=== PATIENT | male | born 1960 | race Caucasian/White ===

== ENCOUNTER 2022-06-18 23:46 | Inpatient (IN) | payer OTHER, SELFPAY ==
[2022-06-18 23:27] VITALS: BMI 33.9
[2022-06-18 23:30] VITALS: BP 144/80; PULSE 88; RESP 19; TEMP 36.4; O2SAT 100
--- NOTE | 2022-06-18 23:35 | HP.PCM.HOS_ITS ---
HPI - General General Date of Admission: 06/18/22 Date of Service: 06/18/22 Chief Complaint: DKA HPI Narrative IRMA LOZANO, is a 61 M with a PMH as outlined who presents as a transfer from outside hospital with a complaint of fatigue, malaise, body aches and chills as well as headache and sore throat ~ 3 days prior ot admission> he had associated nausea and decreased appetite adi he held his home insulin dose. His symptoms didnt improve so he went to outside hospital ED. He was found to be drowsy in [facility] outside hospital ED. He was found to have markedly elevated blood sugars, with glucose in the 600s, and ABG showed ph of 7, with bicarb of 22 and chemistry showed sodium of 129, potassiium of 5.7, bicarb of 8.4 and glucose of 666; Cr was 2.13 with baseline of 0.7 and anion gap was 37. There were moderate blood ketones, and CBC showed wbc of 5.5 and hb of 17.2. Lactic acid was 3. COVID test done was also positive; patient is unvaccinated against covid. He was started on insulin drip, and transferred to [facility] ICU. Patient seen and examined on admission. He was seen in ICU. He had no active complaints and review of systems was otherwise negative. [facility] Medical History (Updated 06/18/22 @ 23:[address] 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 Obesity (BMI 30.0-34.9) Pulmonary nodules Pulmonary scarring Home Medications insulin aspart U-100 100 unit/mL (3 mL) subcutaneous pen (Novolog Flexpen U-100 Insulin aspart) 0 units subcut ACHS 05/03/17 [History Last Taken Unknown] insulin NPH isoph U-100 human 100 unit/mL subcutaneous suspension (Humulin N NPH U-100 Insulin (isophane susp)) 40 unit (0.4 mL) SQ DAILY ##0 05/06/17 [Rx Last Taken Unknown] insulin NPH isoph U-100 human 100 unit/mL subcutaneous suspension (Humulin N NPH U-100 Insulin (isophane susp)) 40 unit (0.4 mL) SQ QHS ##0 05/06/17 [Rx Last Taken Unknown] silver 1.2 %-foam bandage 8 X 8 (Aquacel AG Foam) ##7 05/06/17 [Rx Last Taken Unknown] Allergy/AdvReac Type Severity Reaction Status Date / Time Penicillins [PCN] Allergy Rash Verified 05/03/17 11:06 Family History (Updated 06/18/22 @ 18:[address] Dona Baer MD) Mother Heart disease Father Heart disease Surgical History (Updated 06/18/22 @ 18:[address] Dona Baer MD) History of pancreatic surgery S/P cholecystectomy Social History (Updated 06/18/22 @ 18:[address] Dona Baer MD) household members: none Smoking Status: Never smoker alcohol intake: current alcohol intake frequency: holidays/special occasions only substance use type: does not use ROS Constitutional Constitutional: Reports anorexia, chills, fatigue, fever(s), malaise and weakness Eyes Eyes: Denies change in vision ENT HEENT: Denies dysphagia, headache(s), nasal congestion or sore throat Cardiovascular Cardiovascular: Denies chest pain, dyspnea on exertion, edema, lightheadedness, orthopnea, palpitations, paroxysmal nocturnal dyspnea, rapid heart rate or sync ope Respiratory/Chest Respiratory/Chest: Denies cough, dyspnea, shortness of breath at rest or shortness of breath with exertion Gastrointestinal Gastrointestinal: Denies abdominal pain, diarrhea, nausea or vomiting Genitourinary Genitourinary: Denies dysuria Musculoskeletal Musculoskeletal: Denies arthralgias Neurologic Neurologic: Denies confusion, disequilibrium, dizziness, focal weakness, headache(s), numbness, seizure-like activity or syncope Psychiatric Psychiatric: Denies anxiety or depression Endocrine Endocrinology: Denies change in body appearance Hematologic/Lymphatic Hematologic/Lymphatic: Denies anemia Vital Signs Vital Signs Vital Signs: Weight Weight: 257 lb 0.944 oz Body Mass Index (BMI) 33.9 Physical Exam Const alert, oriented x3 and no apparent distress General Appearance: cooperative HEENT normocephalic, head/scalp atraumatic, hearing grossly normal bilaterally and moist oral mucous membranes Mouth: oral and palatal mucosa normal Eyes PERRL and EOMs intact bilaterally Neck no lymphadenopathy and supple Resp normal respiratory effort, no retractions, no use of accessory muscles and clear to auscultation bilaterally Cardio regular rate, regular rhythm, S1 normal heart sound, S2 normal heart sound and no murmurs GI normal to inspection, nondistended, normoactive bowel sounds, soft to palpation, non-tender and non-distended Extremity normal to inspection, full ROM and no clubbing, cyanosis or edema Neuro oriented x3, CN's II-XII intact bilaterally, moves all extremities and no focal motor deficits Sensorium / Orientation: awake and alert Motor Exam: strength 5/5 throughout Psych affect normal Results Lab / Micro Data Result Diagrams: 06/19/22 06:05 06/19/22 06:05 Assessment & Plan Assessment/Plan (1) DKA (diabetic ketoacidoses): (2) COVID: PLAN: Plan #DKA * admit to ICU * check CBC and BMP * continue insulin drip, and hydrate with IVF * transition to D5 NS once sugar falls to <250 and switch to home dose of insulin * check A1C * * #ANion gap metabolic acidosis due to DKA * anion gap was 37 at outside hospital * check BMP to assess anion gap and bicarb levels * should resolve once DKA resolves * * #COVID 19 infection * asymptomatic. On room air * hold off on steroids as he is asymptomatic and on room air, and steroids will worsen hyperglycemia and DKA * #Pulmonary nodules: chronic. follow up with pulmonology on outpatient basis. Necrosis of pancreas: as above DVT prophylaxis: lovenox Code status: DNRCCA no intubation * Patient counseled extensively about different types of CODE STATUS including full code, DNR CCA and DNR CCA. Patient elects to be DNRCCA no intubation. * Total [id number]-[id number] time 17 minutes. Charges/Coding Visit Charges Inpatient E&M: 91738 Init Hosp L3 Procedures Hospitalists Procedures: 90558 Advncd Care Plan 30 Min
[2022-06-18 23:45] VITALS: BP 129/74; PULSE 90; RESP 15; O2SAT 99
[2022-06-19] VITALS (20 sets, daily range): BP systolic 117–172; BP diastolic 45–88; PULSE 64–90; RESP 11–20; TEMP 36.4–36.8; O2SAT 96–100
[2022-06-19] MEDS: 0.9% Saline Lock 10 ML Syringe IV ×3 (01:25→04:16)
--- NOTE | 2022-06-19 01:30 | NURSING ---
Dr. Wong at bedside to admit pt upon arrival. Received pt from [facility] with insulin gtt infusing at 4 un/hr. New orders placed by Dr. Wong to start new insulin gtt @ 11.7 un/hr. Per Dr. Wong, hold off on IV fluid boluses until updated labs come back. This RN unable to obtain bloodwork, lab currently in room attempting to draw.
[2022-06-19] MEDS: TITRATION PARAMETER CHANGE 1 EACH IV (02:05)
[2022-06-19 02:16] LABS: Absolute Lymphocyte Count 0.35 X10^3/uL (0.83-4.51); Absolute Neutrophil Count 3.9 X10^3/uL (2.0-7.7); Basophil# 0.01 X10^3/uL; Basophil% 0.2 % (0-1); Hematocrit 41.4 % (40-54); Hemoglobin 13.9 g/dL (13.0-16.5); Lymphocyte # 0.35 X10^3/ul (0.83-4.51); Lymphocyte % 7.4 % (19-41); Mean Corp Hgb Conc 33.6 g/dL (32-36); Mean Corpuscular Hgb 26.9 pg (27.0-32.0); Mean Corpuscular Volume 80.1 fL (80-94); Mean Platelet Vol. 9.8 fl (6.2-12.0); Monocyte# 0.47 X10^3/uL; Monocyte% 9.9 % (0-10); NRBC Flagged by Analyzer 0 % (0-5); Neutrophil % 82.3 % (47-70); POSITIVE DIFFERENTIAL YES; Platelet Count 139 K/mm3 (150-450); RBC Distribution Width CV 13.5 % (11.6-14.6); RBC Distribution Width SD 39.1 fl (35.1-43.9); Red Blood Count 5.17 M/mm3 (4.6-6.2); White Blood Count 4.7 K/mm3 (4.4-11.0)
[2022-06-19 02:30] LABS: Bedside Glucose 237 mg/dL (74-106)
[2022-06-19 02:30] LABS: Bedside Glucose 249 mg/dL (74-106)
[2022-06-19 02:30] LABS: Bedside Glucose 231 mg/dL (74-106)
[2022-06-19 02:33] LABS: ALB/GLOB Ratio 0.8 RATIO (0.9-2.4); AST(SGOT) 12 U/L (15-37); Alanine Aminotransfer ALT/SGPT 27 U/L (16-61); Albumin, Serum 2.6 g/dL (3.2-5.0); Alkaline Phosphatase 206 U/L (45-117); Anion Gap 11 (5-15); BUN 25 mg/dL (7-18); BUN/Creat Ratio 18.4 RATIO (10-20); Calcium,Total 7.4 mg/dL (8.5-10.1); Chloride 113 mmol/L (98-107); Creatinine, Serum 1.36 mg/dL (0.70-1.30); EST Glomerular Filtration Rate 57 mL/min (>60); Est Glom Filt Rate - Afr Amer 68 mL/min (>60); Estimated Creatinine Clearance 64.46 ml/min; Globulin 3.3 g/dL (2.2-4.2); Glucose 218 mg/dL (74-106); Magnesium 1.8 mg/dL (1.6-2.6); Potassium 4.3 mmol/L (3.5-5.1); Protein, Total 5.9 g/dL (6.4-8.2); Sodium Level 142 mmol/L (136-145)
[2022-06-19 02:42] LABS: Differential Indicated SCAN CRITERIA MET
[2022-06-19] MEDS: Dext 5%-0.45% NS 1,000 ML 100 ML IV (03:10)
[2022-06-19] MEDS: Ondansetron 4 MG/2 ML Vial IV (04:16)
[2022-06-19 06:17] LABS: Absolute Lymphocyte Count 0.31 X10^3/uL (0.83-4.51); Absolute Neutrophil Count 3.3 X10^3/uL (2.0-7.7); Eosinophil# 0.01 X10^3/uL; Eosinophils% 0.2 % (0-5); Hematocrit 40.4 % (40-54); Lymphocyte # 0.31 X10^3/ul (0.83-4.51); Lymphocyte % 7.6 % (19-41); Mean Corp Hgb Conc 34.7 g/dL (32-36); Mean Corpuscular Hgb 27.4 pg (27.0-32.0); Mean Corpuscular Volume 79.1 fL (80-94); Mean Platelet Vol. 9.4 fl (6.2-12.0); Monocyte% 9.8 % (0-10); NRBC Flagged by Analyzer 0 % (0-5); Neutrophil # 3.34 X10^3/uL (2.7-7.7); Neutrophil % 81.9 % (47-70); POSITIVE DIFFERENTIAL YES; Platelet Count 121 K/mm3 (150-450); RBC Distribution Width CV 13.6 % (11.6-14.6); RBC Distribution Width SD 38.8 fl (35.1-43.9); Red Blood Count 5.11 M/mm3 (4.6-6.2); White Blood Count 4.1 K/mm3 (4.4-11.0)
[2022-06-19 06:21] LABS: Differential Indicated SCAN CRITERIA MET
[2022-06-19 06:29] LABS: Anion Gap 10 (5-15); BUN 24 mg/dL (7-18); BUN/Creat Ratio 18.2 RATIO (10-20); Calcium,Total 7.6 mg/dL (8.5-10.1); Chloride 112 mmol/L (98-107); Creatinine, Serum 1.32 mg/dL (0.70-1.30); EST Glomerular Filtration Rate 58 mL/min (>60); Est Glom Filt Rate - Afr Amer 71 mL/min (>60); Estimated Creatinine Clearance 66.42 ml/min; Glucose 201 mg/dL (74-106); Potassium 4.3 mmol/L (3.5-5.1); Sodium Level 143 mmol/L (136-145)
[2022-06-19 06:35] LABS: Bedside Glucose 202 mg/dL (74-106)
[2022-06-19 06:35] LABS: Bedside Glucose 216 mg/dL (74-106)
[2022-06-19 06:35] LABS: Bedside Glucose 201 mg/dL (74-106)
[2022-06-19 06:35] LABS: Bedside Glucose 184 mg/dL (74-106)
--- NOTE | 2022-06-19 06:49 | CON.PCM.CC_ITS ---
Assessment & Plan Assessment/Plan (1) DKA (diabetic ketoacidoses): (2) COVID: PLAN: Plan RECOMMENDATIONS: 1. Okay to transition from insulin infusion to basal and sliding scale cove rage. 2. Advance diet as tolerated. 3. Diabetic education. 4. Encourage incentive spirometer use while in bed and mobilize patient as tolerated. 5. The patient is medically stable for transfer out of the intensive care unit. 6. Will sign off from a critical care perspective. Please call with any additional questions. IMPRESSIONS: 1. Diabetic ketoacidosis The patient presented to the hospital with DKA in the setting of COVID-19, which was managed with IV fluids and a continuous insulin infusion. The patient's presenting DKA is now resolved. Okay from my perspective to advance diet and resume basal and sliding scale insulin. 2. COVID-19 infection Patient has no respiratory symptoms of note and is maintaining appropriate oxygen saturations on room air. Therefore, no additional intervention is required at this time. 3. Acute kidney injury Likely prerenal in etiology in the setting of DKA. Creatinine has improved with volume resuscitation. Continue to monitor urine output. No indication for renal replacement therapy. This note was generated with [employer] dictation software. It may contain incorrect words, spelling, and punctuation that were not noted in checking the note before signing. HPI Consult Data Date of Consult: 06/19/22 HPI Narrative Reason for Consultation: DKA, COVID HPI Narrative: The patient is a 61-year-old male, with a history as outlined below, who presented as a transfer of care from [facility] with DKA after presenting with generalized malaise, fatigue and chills. In addition, the patient tested positive for COVID. He has an unvaccinated status at his baseline. The patient was apparently noncompliant with his prescribed insulin regimen for several days leading up to his hospitalization, as he did not feel well. At the outside hospital, the patient was noted to have a serum bicarbonate of 8.4 with a glucose of 600, creatinine of 2.13 and elevated anion gap, along with moderate serum ketones. He was initiated on fluids and a continuous insulin infusion and subsequently transferred to our ICU for admission. The patient has remained afebrile and hemodynamically stable overnight. He is maintaining appropriate oxygen saturations on room air. The patient has been fluid resuscitated and remains on a continuous insulin infusion. Anion gap has now been closed x2. The patient is without any resting dyspnea. [facility] Medical History (Updated 06/18/22 @ 23:[address] 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 Obesity (BMI 30.0-34.9) Pulmonary nodules Pulmonary scarring Home Medications silver 1.2 %-foam bandage 8 X 8 (Aquacel AG Foam) ##7 05/06/17 [Rx Last Taken Unknown] insulin degludec 100 unit/mL (3 mL) subcutaneous pen (Tresiba FlexTouch U-100 insulin) 65 unit subcut QHS diabetes 06/19/22 [History Last Taken Unknown] insulin lispro 100 unit/mL subcutaneous solution See Protocol subcut TID diabetes 06/19/22 [History Last Taken Unknown] pantoprazole 40 mg tablet,delayed release 40 mg PO DAILY reflux 06/19/22 [History Last Taken Unknown] Allergy/AdvReac Type Severity Reaction Status Date / Time Penicillins [PCN] Allergy Rash Verified 05/03/17 11:06 Family History (Updated 06/18/22 @ 18:[address] Dona Baer MD) Mother Heart disease Father Heart disease Surgical History (Updated 06/18/22 @ 18:[address] Dona Baer MD) History of pancreatic surgery S/P cholecystectomy Social History (Updated 06/18/22 @ 18:[address] Dona Baer MD) household members: none Smoking Status: Never smoker alcohol intake: current alcohol intake frequency: holidays/special occasions only substance use type: does not use ROS ROS Narrative 10 systems were reviewed with pertinent positives as noted in the HPI above. Physical Exam Const alert, oriented x3 and no apparent distress General Appearance: cooperative Nutritional Appearance: obese HEENT normocephalic, head/scalp atraumatic and moist oral mucous membranes Eyes PERRL, EOMs intact bilaterally and conjunctivae normal Neck supple General: trachea midline Chest inspection of chest normal Resp normal respiratory effort Auscultation: Negative for rales, rhonchi or wheezes Cardio regular rate and regular rhythm GI normal to inspection, nondistended, normoactive bowel sounds Extremity no clubbing, cyanosis or edema Skin no rashes or lesions noted Neuro CN's II-XII intact bilaterally, moves all extremities and no focal motor deficits Psych cooperative and affect normal Lab / Micro Data Result Diagrams: 06/19/22 06:05 06/19/22 06:05 Labs: Laboratory Results - last 24 hr 06/18/22 23:43: POC Glucose 249 H 06/19/22 00:57: POC Glucose 237 H 06/19/22 02:04: POC Glucose 231 H 06/19/22 02:10: Sodium 142, Potassium 4.3, Chloride 113 H, Carbon Dioxide 18.0 L , Anion Gap 11, BUN 25 H, Creatinine 1.36 H, Estim Creat Clear Calc 64.46, Est GFR (MDRD) Af Amer 68, Est GFR (MDRD) Non-Af 57 L, BUN/Creatinine Ratio 18.4, Glucose 218 H, Calcium 7.4 L, Magnesium 1.8, Total Bilirubin 0.30, AST 12 L, ALT 27, Alkaline Phosphatase 206 H, Total Protein 5.9 L, Albumin 2.6 L, Globulin 3.3, Albumin/Globulin Ratio 0.8 L 06/19/22 02:10: WBC 4.7, RBC 5.17, Hgb 13.9, Hct 41.4, MCV 80.1, MCH 26.9 L, MCHC 33.6, RDW Std Deviation 39.1, RDW Coeff of Kita 13.5, Plt Count 139 L, MPV 9.8, Immature Gran % (Auto) 0.200, Neut % (Auto) 82.3 H, Lymph % (Auto) 7.4 L, Bradford % (Auto) 9.9, Eos % (Auto) 0.0, Baso % (Auto) 0.2, Absolute Neuts (auto) 3.9, Absolute Lymphs (auto) 0.35 L, Nucleated RBC % 0 06/19/22 03:05: POC Glucose 202 H 06/19/22 04:06: POC Glucose 216 H 06/19/22 05:00: POC Glucose 201 H 06/19/22 06:02: POC Glucose 184 H 06/19/22 06:05: WBC 4.1 L, RBC 5.11, Hgb 14.0, Hct 40.4, MCV 79.1 L, MCH 27.4, MCHC 34.7, RDW Std Deviation 38.8, RDW Coeff of Kita 13.6, Plt Count 121 L, MPV 9.4, Immature Gran % (Auto) 0.500, Neut % (Auto) 81.9 H, Lymph % (Auto) 7.6 L, Bradford % (Auto) 9.8, Eos % (Auto) 0.2, Baso % (Auto) 0.0, Absolute Neuts (auto) 3.3, Absolute Lymphs (auto) 0.31 L, Nucleated RBC % 0, Diff Path Review February06/19/22 06:05: Sodium 143, Potassium 4.3, Chloride 112 H, Carbon Dioxide 21.0, Anion Gap 10, BUN 24 H, Creatinine 1.32 H, Estim Creat Clear Calc 66.42, Est GFR (MDRD) Af Amer 71, Est GFR (MDRD) Non-Af 58 L, BUN/Creatinine Ratio 18.2, Glucose 201 H, Calcium 7.6 L Charges/Coding Visit Charges Inpatient E&M: 69955 Init Hosp L3
[2022-06-19 07:20] LABS: Bedside Glucose 178 mg/dL (74-106)
[2022-06-19 07:49] LABS: Hemoglobin A1c 12.1 % (3.8-5.6)
[2022-06-19] MEDS: Insulin Glargine-YFGN 100 UNIT/ML Pen 10 UNIT SC (09:08)
[2022-06-19 09:35] LABS: Bedside Glucose 200 mg/dL (74-106)
[2022-06-19] MEDS: Lisinopril 5 MG Tablet PO (10:29)
--- NOTE | 2022-06-19 11:40 | CASEMGMT ---
RN CM called patient in room for initial transition planning/care coordination assessment. RN CM introduced self and role at [facility]. Patient alert and oriented. Patient willing to participate in assessment and is able to answer all questions appropriately. Care providers, pharmacy, and demographics verified. Patient wishes to discharge home, denies need for home health at this time. Patient states he has no further needs or concerns at this time. CM to follow for discharge planning needs that may arise. PCP: Jessica Trinidad STROBOSCOPE OPERATOR, [facility] Specialists: none Preferred Pharmacy: [facility] Insurance: [employer] Prescription Benefit: yes Living Will/HPOA: Odilon painting HPOA LNOK: son, TOMA Living Arrangements: Patient lives with girlfriend in a 2 story home. Patient states he is independent and able to ambulate stairs at home. Transportation: self, GF, son DME/HHC: Patient states he has crutches, glucometer with supplies, and insulin with supplies at home. No previous HHC. Disposition Plan: Patient to discharge home with family support and follow-up plans in place. Cathy RUIZ, RN, CM
[2022-06-19] MEDS: Insulin Lispro 100 UNIT/ML INSULN.PEN SC (13:43)
[2022-06-19 14:05] LABS: Bedside Glucose 145 mg/dL (74-106)
--- NOTE | 2022-06-19 14:08 | DCINST_ITS ---
Discharge Instructions Diet Discharge Diet: Carb Control Diet Activity Discharge Activity: Return to Normal Activity Dressing / Incision Call your doctor if you observe: Fever of 101 or Higher, Shortness of breath, Dizziness, Fainting spells, Swelling in the ankles, Chest pain and Increased palpitations (irregular heartbeat) Follow Up Care Test Results: Test results from this visit will be discussed in further detail at your follow- up appointment, if applicable. Discharge Plan Admission Admit Date/Time: 06/18/22 23:46 Attending Provider: José Luis June Primary Care Provider: Jagdish Felipe Consulting Providers: Maksim Lozada ; Gurdeep Morris ; Roderick Blackman ; Teresa Valdes NP ; Flaquita Wong Discharge Orders/Prescriptions Prescriptions: New lisinopril 5 mg Tablet 5 mg PO DAILY Qty: 30 0RF Continued Tresiba FlexTouch U-100 100 unit/mL (3 mL) insulin pen 65 unit SUBCUT QHS pantoprazole 40 mg tablet,delayed release (DR/EC) 40 mg PO DAILY Label Comments: TAKE 1 TABLET BY MOUTH ONCE DAILY IN THE MORNING BEFORE BREAKFAST insulin lispro 100 unit/mL solution See Protocol subcut TID Protocol: 6. Sliding Scale Insulin Custom Condition: mg/dl range Dose/Route: Number of Units Protocol Text: Custom Sliding Scale Label Comments: INJECT SUBCUTANEOUSLY PER SLIDING SCALE THREE TIMES DAILY DIRECTED BY PHYSICIAN. MAX 60 UNITS PER DAY No Action (DME) silver-foam bandage [Aquacel AG Foam] 1 EACH bandage 1 ea TP DAILY Qty: 7 30RF Referrals / Follow Up: Jagdish Felipe MD [Primary Care Provider] - Disposition Disposition (needs filled in before D/C Order can be placed): Home, Self Care
--- NOTE | 2022-06-19 14:11 | PCM.DC.SUM ---
Providers Date of Admission: 06/18/22 Primary Care Physician: Dr. Jagdish Lozano MD Consultations 06/18/22 23:45 Consult: [facility] House Supervisor / Pulmonary Medicine Routine Consulting Provider: Pulmonary Medicine lyndsay Arora Reason for Consult: DKA, covid EMERGENT Consult: No MD Notified: Yes Date Notified: 06/18/22 Time Notified: 23:48 Method of Notification: Verbal Reason For Visit: COVID,DKA Diagnosis Discharge Diagnosis (1) DKA (diabetic ketoacidoses): Status: Acute Code(s): E13.10 - Other specified diabetes mellitus with ketoacidosis without coma (2) COVID: Status: Acute Code(s): U07.1 - COVID-19 Medications at Discharge Home Medications silver 1.2 %-foam bandage 8 X 8 (Aquacel AG Foam) ##7 05/06/17 insulin degludec 100 unit/mL (3 mL) subcutaneous pen (Tresiba FlexTouch U-100 insulin) 65 unit subcut QHS diabetes 06/19/22 insulin lispro 100 unit/mL subcutaneous solution See Protocol subcut TID diabetes 06/19/22 lisinopril 5 mg tablet 5 mg PO DAILY #30 tabs 06/19/22 pantoprazole 40 mg tablet,delayed release 40 mg PO DAILY reflux 06/19/22 Hospital Course Operations None Procedures None Summary of Care Provided Minutes Spent on Discharge: 42 Hospital Course: Per HPI: IRMA LOZANO, is a 61 M with a H as outlined who presents as a transfer from outside hospital with a complaint of fatigue, malaise, body aches and chills as well as headache and sore throat ~ 3 days prior ot admission> he had associated nausea and decreased appetite adi he held his home insulin dose. His symptoms didnt improve so he went to outside hospital ED. He was found to be drowsy in [facility] outside hospital ED. He was found to have markedly elevated blood sugars, with glucose in the 600s, and ABG showed ph of 7, with bicarb of 22 and chemistry showed sodium of 129, potassiium of 5.7, bicarb of 8.4 and glucose of 666; Cr was 2.13 with baseline of 0.7 and anion gap was 37. There were moderate blood ketones, and CBC showed wbc of 5.5 and hb of 17.2. Lactic acid was 3. COVID test done was also positive; patient is unvaccinated against covid. He was started on insulin drip, and transferred to [facility] ICU. Patient seen and examined on admission. He was seen in ICU. He had no active complaints and review of systems was otherwise negative. Hospital Course: 1. DKA with an anion gap metabolic acidosis/COVID-19?61-year-old male presents from an outside hospital with DKA. His anion gap with an insulin drip and IV fluids has closed very quickly and his sugar and vital signs are stable. Continue with his IV fluids during his last day while awaiting pickup. As to his COVID, he remains completely asymptomatic other than a sore throat and some body aches, he is not requiring any oxygen and is currently 100% on room air. I did discuss with him and his girlfriend the plan for discharge today and he expressed understanding of the risk benefits of going home and he is okay with going home today, the tele grout sewer line repairer was also okay with his discharge today secondary to his rapid improvement in his DKA. I did recommend multiple blood sugar checks throughout the night and to adjust his insulin as necessary. As to his COVID, he does have a home pulse oximeter which I recommended that he check his random pulse ox periodically throughout the day but at the moment no treatment is advised secondary to his blood sugar and the need for steroids for COVID if he does become symptomatic. I do recommend that he follow-up with his PCP in 3 to 5 days. He improved faster than anticipated. 2. Hypertension, GERD are chronic medical conditions which complicate his care. His home medications were continued where appropriate. I did restart him on lisinopril secondary to his diabetes and the fact that he was hypertensive here in the hospital. Physical Exam Narrative General: Alert, Oriented x3, Cooperative, No apparent distress HEENT: Atraumatic, PERRLA, EOMI, Normocephalic Oral: Moist Mucosa Neck: Supple, No JVD Lungs: Clear to auscultation, Normal air movement, No rhonchi, No wheeze, No rales Cardiovascular: Regular rate, Regular Rhythm, Normal S1, Normal S2, No murmurs Abdomen: Soft, Non Tender, Non-Distended, No Hepato-splenomegaly Extremities: No edema, Capillary Refill Less than 3 Seconds Skin: No rashes, No breakdown Musculoskeletal: No Tenderness to Palpation of Joints or Extremities Neurological: Cranial nerves II-XII grossly intact, Motor Exam 5/5 strength throughout, Sensory exam intact to light touch and pain Psych/Mental Status: Normal Affect, Appropriate Weight / BMI Weight Weight: 259 lb 14.8 oz Body Mass Index (BMI) 33.9 ABG / Lab / Microbiology Data Result Diagrams: 06/19/22 06:05 06/19/22 06:05 Laboratory: Laboratory Results - last 24 hr 06/18/22 02:10: Hemoglobin A1c 12.1 H 06/18/22 23:43: POC Glucose 249 H 06/19/22 00:57: POC Glucose 237 H 06/19/22 02:04: POC Glucose 231 H 06/19/22 02:10: Sodium 142, Potassium 4.3, Chloride 113 H, Carbon Dioxide 18.0 L, Anion Gap 11, BUN 25 H, Creatinine 1.36 H, Estim Creat Clear Calc 64.46, Est GFR (MDRD) Af Amer 68, Est GFR (MDRD) Non-Af 57 L, BUN/Creatinine Ratio 18.4, Glucose 218 H, Calcium 7.4 L, Magnesium 1.8, Total Bilirubin 0.30, AST 12 L, ALT 27, Alkaline Phosphatase 206 H, Total Protein 5.9 L, Albumin 2.6 L, Globulin 3.3, Albumin/Globulin Ratio 0.8 L 06/19/22 02:10: WBC 4.7, RBC 5.17, Hgb 13.9, Hct 41.4, MCV 80.1, MCH 26.9 L, MCHC 33.6, RDW Std Deviation 39.1, RDW Coeff of Kita 13.5, Plt Count 139 L, MPV 9.8, Immature Gran % (Auto) 0.200, Neut % (Auto) 82.3 H, Lymph % (Auto) 7.4 L, Dickey % (Auto) 9.9, Eos % (Auto) 0.0, Baso % (Auto) 0.2, Absolute Neuts (auto) 3.9, Absolute Lymphs (auto) 0.35 L, Nucleated RBC % 0 06/19/22 03:05: POC Glucose 202 H 06/19/22 04:06: POC Glucose 216 H 06/19/22 05:00: POC Glucose 201 H 06/19/22 06:02: POC Glucose 184 H 06/19/22 06:05: WBC 4.1 L, RBC 5.11, Hgb 14.0, Hct 40.4, MCV 79.1 L, MCH 27.4, MCHC 34.7, RDW Std Deviation 38.8, RDW Coeff of Kita 13.6, Plt Count 121 L, MPV 9.4, Immature Gran % (Auto) 0.500, Neut % (Auto) 81.9 H, Lymph % (Auto) 7.6 L, Dickey % (Auto) 9.8, Eos % (Auto) 0.2, Baso % (Auto) 0.0, Absolute Neuts (auto) 3.3, Absolute Lymphs (auto) 0.31 L, Nucleated RBC % 0, Diff Path Review February06/19/22 06:05: Sodium 143, Potassium 4.3, Chloride 112 H, Carbon Dioxide 21.0, Anion Gap 10, BUN 24 H, Creatinine 1.32 H, Estim Creat Clear Calc 66.42, Est GFR (MDRD) Af Amer 71, Est GFR (MDRD) Non-Af 58 L, BUN/Creatinine Ratio 18.2, Glucose 201 H, Calcium 7.6 L 06/19/22 07:02: POC Glucose 178 H 06/19/22 08:38: POC Glucose 200 H 06/19/22 10:14: POC Glucose 145 H D/C Instructions Discharge Diet: Carb Control Diet Call your doctor if you observe: Fever of 101 or Higher, Shortness of breath, Dizziness, Fainting spells, Swelling in the ankles, Chest pain and Increased palpitations (irregular heartbeat) Meaningful Use Info Meaningful Use Diagnoses (Choose all that apply): None applicable Discharge Plan Admission Admit Date/Time: 06/18/22 23:46 Attending Provider: José Luis June Primary Care Provider: Jagdish Lozano Consulting Providers: Maksim Lozada ; Gurdeep Morris ; Roderick Blackman ; Teresa Valdes NP ; Flaquita Wong Discharge Orders/Prescriptions Prescriptions: New lisinopril 5 mg Tablet 5 mg PO DAILY Qty: 30 0RF Continued Tresiba FlexTouch U-100 100 unit/mL (3 mL) insulin pen 65 unit SUBCUT QHS pantoprazole 40 mg tablet,delayed release (DR/EC) 40 mg PO DAILY Label Comments: TAKE 1 TABLET BY MOUTH ONCE DAILY IN THE MORNING BEFORE BREAKFAST insulin lispro 100 unit/mL solution See Protocol subcut TID Protocol: 6. Sliding Scale Insulin Custom Condition: mg/dl range Dose/Route: Number of Units Protocol Text: Custom Sliding Scale Label Comments: INJECT SUBCUTANEOUSLY PER SLIDING SCALE THREE TIMES DAILY DIRECTED BY PHYSICIAN. MAX 60 UNITS PER DAY No Action (DME) silver-foam bandage [Aquacel AG Foam] 1 EACH bandage 1 ea TP DAILY Qty: 7 30RF Referrals / Follow Up: Jagdish Lozano MD [Primary Care Provider] - Disposition Disposition (needs filled in before D/C Order can be placed): Home, Self Care Charges/Coding Visit Charges Inpatient E&M: 85084 Disch Hosp
[2022-06-19 17:25] LABS: Bedside Glucose 224 mg/dL (74-106)
[2022-06-21 09:17] LABS: Pathologist Review Reviewed
== END 2022-06-19 17:15 | disposition home or self-care (01) | DRG 637 ==
PROVIDERS: Student in an Organized Health Care Education/Training Program; Admitting Provider Family Medicine; PCP Orthopaedic Surgery; Visit Provider Family Medicine
DX: E11.10 Type 2 diabetes mellitus with ketoacidosis without coma (principal); U07.1 COVID-19; N17.9 Acute kidney failure, unspecified; K86.89 Other specified diseases of pancreas; Z79.4 Long term (current) use of insulin; I10 Essential (primary) hypertension; E78.5 Hyperlipidemia, unspecified; Z66 Do not resuscitate; Z28.310 Unvaccinated for COVID-19; Z79.899 Other long term (current) drug therapy; E66.9 Obesity, unspecified; Z68.33 Body mass index [BMI] 33.0-33.9, adult; R91.8 Other nonspecific abnormal finding of lung field
CPT/HCPCS: 80048; 80053; 82962; 83036; 83735; 85025; 97161; 97166; A4216; J2405; J7799